=== PATIENT | male | born 1965 | race Caucasian/White ===

== ENCOUNTER 2016-11-25 08:35 | Emergency (ER) | payer OTHER ==
[~2016-11-25] VITALS: Ht 179.1 cm; Wt 185.0 kg
[2016-11-25 08:37] VITALS: BP 163/89; PULSE 66; RESP 15; O2SAT 99
--- NOTE | 2016-11-25 08:55 | ED.REPORT ---
HPI-Back Pain 40 and Over Date of Service Nov 25, 2016 ED Provider: Julio Cesar Mirza MD Patient is a 51 year old male with a hx of L4 herniation, hyperlipidemia, and afib who presents to the ED s/p exacerbating his injury 5 days ago and again yesterday. He reports performing more manual tasks lately. Yesterday he bent down which exacerbated his pain. His pain radiates down the back of his legs to the back of his knees. Associated symptoms include mild tingling down the back of his legs and muscle spasms. He denies numbness, weakness, incontinence, dysuria, or any other symptoms. He was seen at urgent care 5 days ago and given prednisone, Robaxin, and [place]. The original injury was 13 years ago due to "active lifestyle". He does not have a PCP currently. Nursing Notes Stated Complaint: BACK PAIN Chief Complaint: Back Pain or Injury Nursing Notes Reviewed: Yes Allergies: Coded Allergies: No Known Allergies (Unverified , 01/10/15) General Time Seen by MD: 08:47 Chief Complaint Back pain Hx Obtained From: Patient Arrived By: Walk-in Sudden in Onset?: Yes Onset Occurred: 5 days ago Symptom Duration: Intermittent Similar Sx Previous: Yes Risk Factors )( AAA Risk Stratification Abdominal Aortic Aneurysm Risk: No Hypertension, No Prior AAA Risk factors reviewed )( TAD Risk Stratification High intensity wt liftingNo Hypertension, No Marfan's syndrome, No Risk factors reviewed Past Medical History Past Medical History Sleep apnea hyperlipidemia murmur L4 herniation Reports: Atrial fibrillation Past Surgical History None reported Smoking History Former Smoker Social History Alcohol Use: In recovery Drug Use: Denies drug use Other Social History: Good social support, Ambulatory Status Independent Review of Systems Review of Systems Note: +tingling, muscle spasms Male: Denies Dysuria, Denies Incontinence Musculoskeletal: Reports: Back pain, Extremity pain Neurologic: Denies: Bladder dysfunction, Bowel dysfunction, Focal weakness, Numbness, Weakness Complete sys rev & neg: except as marked. Physical Exam Initial Vital Signs Vital Signs (First) Date Time Temp Pulse Resp B/P Pulse Ox O2 Delivery O2 Flow Rate FiO2 11/25/16 08:37 36.2 66 15 163/89 99 Room Air Initial VS: Reviewed, Vital signs abnormal Head / Eyes: Atraumatic, Normocephalic Neck: Full range of motion Skin: Warm, Dry Psychiatric: Mood/affect normal, Behavior normal, Normal thought content General/Constitutional: Awake, Alert, No acute distress Respiratory / Chest: Breath sounds NL, Breath sounds = bilat, No respiratory distress Cardiovascular: Heart rate NL, Regular rhythm, Heart sounds NL, No gallop, No murmurs, No rubs Abdomen: Atraumatic, Soft, Non-tender Back: No midline vertebral tend Positive straight leg raise at 45 degrees L lower back tenderness No midline tenderness Neurologic: Oriented X3, Speech NL Re-Eval/Medical Decision Med Decision/Clinical Course 51-year-old male history of L4 disc herniation and chronic sciatica presenting with typical flare of his typical sciatica. He reports heavy lifting recently with subsequent left low back pain radiating down the back of his left thigh. He has no red flag symptoms. No weakness numbness tingling incontinence. His symptoms improved with Toradol. His neurological exam is benign. He has no midline tenderness and no recent trauma to suggest a need for imaging. Patient will follow up with primary doctor in several days for referral to physical therapy and possible referral to physiatry. Return precautions given. Re-Evaluation/Progress : Time of Eval: 09:07 Re-Evaluation/Progress Note: Discussed plan for discharge. Patient understands and agrees with plan. All questions addressed at this time. Counseled Regarding: Diagnosis, Need for follow-up, When/why to return to ED Discharge & Departure Impression: Primary Impression: Sciatica Laterality: unspecified laterality Qualified Code: M54.30 - Sciatica, unspecified side Disposition: Home Discharge Condition All VS Reviewed: Yes Condition: Stable Patient Instructions: Sciatica (ED) Additional Instructions: Thank you for entrusting us with your care. I do not suspect a dangerous cause for your symptoms at this time. I believe your symptoms are due to sciatica. Call the residency clinic or walk in to establish primary care and schedule a follow up appointment. Return to the emergency department for numbness, weakness, incontinence (peeing or pooping when you don't want to), increasing tingling, or ant other new or worsening symptoms. Referrals: [facility] Scribe Attestation Portions of this note were transcribed by Megan Burns. I, Dr. Mirza personally performed the history, physical exam and medical decision-making; I reviewed and confirmed the accuracy of the information in the transcribed note. Signed by: Gera Tyler, 11/25/16 at 0911. copies to: [facility] Julio Cesar Mirza MD Nov 25, 2016 08:55 MEGAN BURNS Nov 25, 2016 09:03
== END 2016-11-25 09:42 | disposition home or self-care (01) ==
LOC: SED 08:35
DX: M54.42 Lumbago with sciatica, left side (principal); X50.1XXA Overexertion from prolonged static or awkward postures, initial encounter; Y93.89 Activity, other specified; Y92.89 Other specified places as the place of occurrence of the external cause; Y99.8 Other external cause status; R20.2 Paresthesia of skin; M62.838 Other muscle spasm; I48.91 Unspecified atrial fibrillation; E78.5 Hyperlipidemia, unspecified; Z87.39 Personal history of other diseases of the musculoskeletal system and connective tissue; Z87.891 Personal history of nicotine dependence
CPT/HCPCS: 96372; 99283; J1885